=== PATIENT | female | born 1930 | race Asian ===

== ENCOUNTER 2016-09-29 07:48 | Day surgery (SDC) | payer OTHER ==
[~2016-09-29] VITALS: Ht 157.5 cm; Wt 49.0 kg
[2016-09-29] VITALS (12 sets, daily range): BP systolic 106–146; BP diastolic 56–78; PULSE 64–75; RESP 18–33; Ht 157.5 cm; Wt 49.0 kg
--- NOTE | 2016-09-29 07:35 | HPN ---
Date/Time of Note Date/Time of Note DATE: 09/29/16 TIME: 07:35 Interval H&P Admission Note Pt. seen H&P reviewed: No system changes BILL QUESADA MD Sep 29, 2016 07:35
[~2016-09-29 07:48] MED LIST: AMLO5TAB4 PO; HYD25 PO
[2016-09-29] MEDS ORDERED: NEPAFENAC 0.1% 3 ML OPH OPER SCH (08:30)
[2016-09-29] MEDS ORDERED: CYCLOPENTOLATE 2% 2 ML OPH OPER SCH (08:30)
[2016-09-29] MEDS ORDERED: PHENYLephrine 10% 5 ML OPH OPER SCH (08:30)
[2016-09-29] MEDS ORDERED: MOXIFLOXACIN 0.5% 3 ML OPH OPER SCH (08:30)
[2016-09-29] MEDS ORDERED: PROPOFOL 20 ML ONE (09:35)
[2016-09-29] MEDS ORDERED: FENTAnyl 50 MCG/ML VIAL ONE (09:35)
[2016-09-29] MEDS ORDERED: LIDOCAINE 1% (MPF) 10 ML INJ ONE (09:49)
[2016-09-29] MEDS ORDERED: BUPIVACAINE 0.75% (MPF) 10 ML INJ ONE (09:49)
[2016-09-29] MEDS ORDERED: EPINEPHrine 1 MG INJ ONE (09:49)
[2016-09-29] MEDS ORDERED: TIMOLOL 0.5% 5 ML OPH ONE (09:49)
[2016-09-29] MEDS ORDERED: TIMOLOL 0.5% 5 ML OPH LEFT EYE ONE (10:50)
[2016-09-29] MEDS ORDERED: OXYCODONE/ACETAMINOPHEN (5/325) TAB PO PRN (11:00)
[2016-09-29] MEDS ORDERED: ONDANSETRON 4 MG INJ IV PRN (11:00)
[2016-09-29] MEDS ORDERED: LIDOCAINE 2% (SDV) 5 ML INJ ONE (11:10)
--- NOTE | 2016-09-29 11:10 | OPR ---
Date/Time of Note Date/Time of Note DATE: 09/29/16 TIME: 11:06 Operative Report Free Text/Dictation no co-surgeons or assists Preoperative Diagnosis cataract left eye Postoperative Diagnosis same Operation/Procedure Performed cataract extraction with lens implant Surgeon: BILL QUESADA MD Anesthesia Type: MAC Estimated Blood Loss: none Transfusion Required: no Specimen: none Grafts/Implants: none Complications: no BILL QUESADA MD Sep 29, 2016 11:10
--- NOTE | 2016-09-30 04:28 | OPR ---
DATE OF OPERATION: 09/29/2016 SURGEON: Kaylee Dockery MD PURCHASING MANAGER/SALES: None. ANESTHESIOLOGIST: [____] PREOPERATIVE DIAGNOSIS: Senile nuclear sclerotic cataract, right eye. POSTOPERATIVE DIAGNOSIS: Senile nuclear sclerotic cataract, right eye. OPERATION: Kelman phacoemulsification with implantation of intraocular lens, right eye. PROCEDURE: Following standard preparation and draping of the patient, an aspirating lid speculum was placed for immobilization of the lids. A Superblade incision was made for access into the anterior chamber. Approximately 0.5 ml of 1% unpreserved Xylocaine was instilled into the anterior chamber, and after approximately 15 seconds, this was replaced with Viscoat. A clear corneal incision was then made using the 3.2 mm keratome, following which an anterior circular capsulorrhexis was made. The major portion of the lens cortex and nucleus was then dislocated from the capsular bag using hydrodissection. The KPE tip was introduced into the eye, and controlling movements of the lens with a two-handed technique, the major portion of the lens cortex and nucleus was removed, maintaining the lens in the plane of the iris. The remaining cortical material was removed via the irrigating-aspirating instrument. The capsular bag and the anterior chamber were re-formed using Viscoat. The proper power lens was then placed within the capsular bag. The viscoelastic was then removed from the eye and the eye re-formed with balanced salt solution. One 10-0 Vicryl suture was then used to ensure closure of the corneal incision. The eye was re-formed to normal pressure using balanced salt solution. The eye and cul-de-sacs were now simply flooded with 5% Betadine solution. One drop of Vigamox and one drop of Betagan solution were instilled into the eye. A light pressure dressing was applied, and the patient was returned to the recovery room in satisfactory condition. Dictated By: Kaylee Dockery MD /wale/blaine /Document#: [id number]
== END 2016-09-29 12:25 | disposition home or self-care (01) ==
LOC: SDS 07:48
PROVIDERS: ATTEND Ophthalmology
DX: H25.12 Age-related nuclear cataract, left eye (principal); I10 Essential (primary) hypertension
CPT/HCPCS: 66984; J0171; J3010; V2632; Z7512; Z7610

== ENCOUNTER 2018-05-19 16:51 | Inpatient (IN) | payer OTHER ==
[~2018-05-19] VITALS: Ht 157.5 cm; Wt 49.0 kg
[~2018-05-19 16:51] MED LIST changes: -HYD25 PO; +HYDR25TA6 PO
[2018-05-19 20:00] VITALS: PULSE 76
[2018-05-19 20:15] VITALS: BP 113/57; PULSE 70; RESP 16
[2018-05-19] MEDS ORDERED: ONDANSETRON 4 MG INJ IV PRN (20:30)
[2018-05-19] MEDS ORDERED: BISACODYL (EC) 5 MG TAB PO PRN (20:30)
[2018-05-19] MEDS ORDERED: DOCUSATE SODIUM 100 MG CAP PO PRN (20:30)
[2018-05-19] MEDS ORDERED: ACETAMINOPHEN 325 MG TAB PO PRN (20:30)
[2018-05-19] MEDS ORDERED: NACL 0.9% 3 ML SYG IV SCH (20:30)
[2018-05-19 20:32] VITALS: PULSE 76
[2018-05-19] MEDS ORDERED: SOD CHLORIDE 0.45% 1,000 ML IV SCH (22:30)
--- NOTE | 2018-05-19 22:39 | HP ---
Date/Time of Note Date/Time of Note DATE: 05/19/18 TIME: 22:39 Assessment/Plan VTE Prophylaxis SCD applied (from Ns): Yes Pharmacological prophylaxis: NA/contraindicated Pharm contraindication: low risk/ambulating Assessment/Plan Hospital Course This is a 88-year female being admitted to the telemetry floor for: #1 persistent cough: Possibly secondary to unresolved versus recurrent pneumonia. At the current time will treat patient with Zosyn 3.375 every [address] of the chest to further evaluate given the fact that she has had some persistent cough for approximately 2 months. Will need to contact [facility] for culture results. #2 abnormal weight loss: Patient has lost approximately 20 pounds over the last month. She also has had a poor appetite. Patient also has reported difficulty swallowing. Will obtain a CT of the chest and a CT of the abdomen pelvis for further evaluate. Will obtain a swallow evaluation, and consider GI consultation. Will check a stool occult blood. #3 normocytic anemia: We will check a stool occult blood, will check iron stores and ferritin. CT studies. Given her weight loss like to keep malignancy on the differential. #4 dehydration with contraction alkalosis: Secondary to poor appetite as well as effect from hydrochlorthiazide. Will hold hydrochlorothiazide at the current time. Will hydrate the patient with normal saline. Will monitor will check re peat BMP and monitor sodium and potassium levels. #5 electrolyte derangement: Likely secondary to poor p.o. intake and medication and hydrochlorothiazide effect. Will discontinue hydrochlorthiazide. Will check stat CMP to assess sodium and potassium levels and replete as indicated. #6 DVT GI prophylaxis: SCDs, no GI prophylaxis indicated Further treatment strategy will be implemented as per the clinical course. Result Diagram: 05/19/18204305/19/182043 Results 24hrs Laboratory Tests Test 05/19/18 20:44 White Blood Count 8.6 Red Blood Count 3.84 L Hemoglobin 10.3 L Hematocrit 32.7 L Mean Corpuscular Volume 85.2 Mean Corpuscular Hemoglobin 26.8 L Mean Corpuscular Hemoglobin Concent 31.5 L Red Cell Distribution Width 15.9 H Platelet Count 435 H Mean Platelet Volume 8.2 Immature Granulocytes % 0.700 H Neutrophils % 78.5 H Lymphocytes % 10.2 L Monocytes % 9.8 Eosinophils % 0.6 Basophils % 0.2 Nucleated Red Blood Cells % 0.0 Immature Granulocytes # 0.060 H Neutrophils # 6.7 Lymphocytes # 0.9 Monocytes # 0.8 Eosinophils # 0.1 Basophils # 0.0 Nucleated Red Blood Cells # 0.0 Sodium Level 132 L Potassium Level 4.3 Chloride Level 94 L Carbon Dioxide Level 34 H Anion Gap 4 L Blood Urea Nitrogen 3 L Creatinine 0.44 Est Glomerular Filtrat Rate mL/min Glucose Level 106 Calcium Level 8.8 Magnesium Level 1.8 Total Bilirubin 0.4 Direct Bilirubin 0.00 Indirect Bilirubin 0.4 Aspartate Amino Transf (AST/SGOT) 36 Alanine Aminotransferase (ALT/SGPT) 22 Alkaline Phosphatase 90 Total Protein 7.1 Albumin 3.2 L Globulin 3.90 H Albumin/Globulin Ratio 0.82 HPI/ROS Admit Date/Time Admit Date/Time May 19, 2018 at 19:24 Hx of Present Illness Chief complaint: Decreased appetite and cough times 2 months The following history was obtained from the transfer documentation as well as from the daughter . this is a 88-year-old female who presented to [facility] with complaints of cough and poor appetite. Patient subsequently transferred to [facility] secondary to insurance purposes. Patient is presented with her daughter. Daughter states that mother went to the [facility] to visit 2 months ago and over there was diagnosed with pneumonia and she was treated with azithromycin for a course of 7. The daughter just went and brought her mother back approximately 2 days ago from the [facility] and noticed that she had a significant amount of weight loss. She continues to have a nonproductive cough. She otherwise has been moving around and in activity barreto is near her baseline. She does report that while she is drinking fluids the mother has been having decreased solid food intake. She states that she cannot swallow it, but she denies any pain when swallowing food. She still takes her blood pressure medications without any problem. Daughter denies any exposure to tuberculosis no signs of fevers or hemoptysis. Pertinent laboratory findings from the transferring facility please see chart for full details: Vitals on presentation heart rate 88 BP 104 51 temperature 36.2C SPO2 94% on room air Urinalysis shows small leukoesterase Hemoglobin 11.4 hematocrit 35.2 white blood cells 10.4 platelets 550 Sodium 127/potassium 2.4/chloride 81/glucose 126/BUN 3/creatinine 0.58 Troponin less than 0.029 Chest x-ray showed chronic fibrotic changes, possible right-sided infiltrate. EKG showed normal sinus rhythm at approximately 92 bpm, ST segment depressions at 123 and aVF QRS interval prolonged. As per the ED physician interpretation. Allergies: NKDA Medications: Hydrochlorothiazide, amlodipine ROS Subjective hx not possible: other (Unable to obtain secondary to language barrier) PMH/Family/Social Past Medical History Hypertension Medications Current Medications IV Flush (NS 3 ml) 3 ml PER PROTOCOL IV ; Start 05/19/18 at 20:30 Ondansetron HCl (Zofran Inj) 4 mg Q6H PRN IV NAUSEA/VOMITING; Start 05/19/18 at 20:30 Acetaminophen (Tylenol Tab) 650 mg Q6H PRN PO .PAIN 1-3 OR TEMP; Start 05/19/18 at 20:30 Docusate Sodium (Colace) 100 mg Q12H PRN PO .CONSTIPATION; Start 05/19/18 at 20:30 Bisacodyl (Dulcolax) 5 mg DAILY PRN PO .CONSTIPATION; Start 05/19/18 at 20:30 Sodium Chloride 1,000 ml @ 80 mls/hr [id number] IV Last administered on 05/19/18at 22:27; Admin Dose 80 MLS/HR; Start 05/19/18 at 22:30; Stop 05/20/18 at 10:59 Coded Allergies: No Known Allergy (Unverified , 09/29/16) Past Surgical History Hysterectomy, cataract surgery Family History Significant Family History: no pertinent family hx Social History Alcohol Use: none Smoking Status: Never smoker Drug Use: none Exam/Review of Systems Vital Signs Vitals Vital Signs Date Temp Pulse Resp B/P (MAP) Pulse Ox O2 O2 Flow FiO2 Time Delivery Rate 05/19/18 76 20:32 05/19/18 97.3 16 113/57 91 20:15 (75) Exam Exam General: Patient is a frail-appearing female lying in bed currently no acute distress HEENT: Atraumatic, normocephalic. The pupils are equal, round and reactive. Extraocular motor are intact Neck: Supple with full range of motion. No rigidity or meningismus Chest: Nontender Lungs: Coarse breath sounds bilaterally, no cough during my examination Heart: Normal S1-S2, Regular rhythm and rate. No murmur, S3, or S4 Abdomen: Soft , nontender, nondistended , bowel sounds are present. No guarding no rebound tenderness , No masses or organomegaly. No costovertebral temporal angle mass Extremities: Normal to inspection, no edema no cyanosis Neurologic: Awake and alert, easily arousable. Cranial nerves II to XII intact. Gait not assessed. ALBERT BARRAGAN May 19, 2018 22:39
[2018-05-20] VITALS (12 sets, daily range): BP systolic 92–128; BP diastolic 50–65; PULSE 71–91; RESP 16–18
[2018-05-20] MEDS ORDERED: BARIUM SULF 2% 450 ML BTL (BERRY SMOOTHIE) PO ONE (04:00)
[2018-05-20] MEDS: PIPER-TAZO 3.375 GM IV (PMX) 100 ML IVPB SCH ×3 (05:22→21:19)
[2018-05-20] MEDS: AMLODIPINE 5 MG TAB PO SCH (08:45)
[2018-05-20] MEDS ORDERED: NACL 3% FOR INHALATION 15 ML NEBU NEB ONE (10:00)
--- NOTE | 2018-05-20 16:18 | PN ---
Date/Time of Note Date/Time of Note DATE: 05/20/18 TIME: 16:13 Assessment/Plan VTE Prophylaxis Risk score (from Ns)>0 risk: 3 SCD applied (from Ns): Yes Pharmacological prophylaxis: NA/contraindicated Pharm contraindication: low risk/ambulating Lines/Catheters IV [facility] (from [facility] Peripheral IV Urinary Cath still in place: No Assessment/Plan Assessment/Plan 88 yo [place] woman admitted with weight loss, cough, and lung infiltrates #Persistent cough #Weight loss #Infiltrates and ground glass opacities on CT - Due to recent visit to [facility], patient is at moderate risk of tuberculosis. - Airborne isolation - Ruleout with induced sputum TB PCR x2 and AFB smear x3. - Will continue zosyn for possible "unresolved pneumonia" - Alternatively, there are enlarged mediastinal lymph nodes. After TB ruleout she may be a candidate for bronchoscopy with EBUS versus mediastinoscopy, both of which could be done outpatient. # normocytic anemia: - Elevated ferritin consistent with anemia of chronic disease # dehydration with contraction alkalosis: - Secondary to poor appetite as well as effect from hydrochlorthiazide. Will hold hydrochlorothiazide at the current time. - Fluid hydration, resume diet. # DVT GI prophylaxis: SCDs, no GI prophylaxis indicated Result Diagram: 05/20/18 0504 05/20/18 0504 Subjective 24 Hr Interval Summary Free Text/Dictation No acute overnight events. Patient's son was at bedside, I updated him on the plan. To clarify; patient has had weight loss since being in the [facility] as well as productive cough; but denies fever or night sweats. Exam/Review of Systems Exam Vitals Vital Signs Date Temp Pulse Resp B/P (MAP) Pulse Ox O2 O2 Flow FiO2 Time Delivery Rate 05/20/18 90 20 96 21 16:08 05/20/18 98.2 117/59 15:24 (78) 05/19/18 Nasal 2.0 21:00 Cannula Intake and Output 05/19/18 05/19/18 05/20/18 1515:00 23:00 07:00 IntakeIntake Total 300 ml BalanceBalance 300 ml Exam General: Patient is a frail-appearing woman lying in bed currently no acute distress HEENT: Atraumatic, normocephalic. The pupils are equal, round and reactive. Extraocular motor are intact Neck: Supple with full range of motion. No rigidity or meningismus Chest: Nontender Lungs: Coarse breath sounds bilaterally, occasional wet cough. Heart: Normal S1-S2, Regular rhythm and rate. No murmur, S3, or S4 Abdomen: Soft , nontender, nondistended , bowel sounds are present. No guarding no rebound tenderness , Extremities: Normal to inspection, no edema no cyanosis Results Results 24hrs Laboratory Tests Test 05/19/18 20:44 05/20/18 05:04 05/20/18 08:45 White Blood Count 8.6 8.7 Red Blood Count 3.84 L 3.58 L Hemoglobin 10.3 L 9.7 L Hematocrit 32.7 L 31.0 L Mean Corpuscular Volume 85.2 86.6 Mean Corpuscular Hemoglobin 26.8 L 27.1 L Mean Corpuscular Hemoglobin Concent 31.5 L 31.3 L Red Cell Distribution Width 15.9 H 16.0 H Platelet Count 435 H 433 H Mean Platelet Volume 8.2 8.7 Immature Granulocytes % 0.700 H 0.600 H Neutrophils % 78.5 H 76.0 Lymphocytes % 10.2 L 12.8 L Monocytes % 9.8 9.5 Eosinophils % 0.6 0.8 Basophils % 0.2 0.3 Nucleated Red Blood Cells % 0.0 0.0 Immature Granulocytes # 0.060 H 0.050 H Neutrophils # 6.7 6.6 Lymphocytes # 0.9 1.1 Monocytes # 0.8 0.8 Eosinophils # 0.1 0.1 Basophils # 0.0 0.0 Nucleated Red Blood Cells # 0.0 0.0 Sodium Level 132 L 136 Potassium Level 4.3 4.7 Chloride Level 94 L 96 L Carbon Dioxide Level 34 H 32 H Anion Gap 4 L 8 Blood Urea Nitrogen 3 L 3 L Creatinine 0.44 0.43 L Est Glomerular Filtrat Rate mL/min Glucose Level 106 89 Calcium Level 8.8 8.7 Magnesium Level 1.8 1.7 Total Bilirubin 0.4 0.2 Direct Bilirubin 0.00 0.00 Indirect Bilirubin 0.4 0.2 Aspartate Amino Transf (AST/SGOT) 36 31 Alanine Aminotransferase (ALT/SGPT) 22 24 Alkaline Phosphatase 90 75 Total Protein 7.1 6.0 #L Albumin 3.2 L 2.8 L Globulin 3.90 H 3.20 Albumin/Globulin Ratio 0.82 0.87 Hemoglobin A1c 5.9 Iron Level 20 L Total Iron Binding Capacity 191 L Percent Iron Saturation 10 L Ferritin 531.0 H Creatine Kinase < 20 L Creatine Kinase Index Creatinine Kinase MB (Mass) 0.28 Troponin I < 0.012 Thyroid Stimulating Hormone (TSH) 1.630 Stool Occult Blood NEGATIVE Medications Medication Current Medications IV Flush (NS 3 ml) 3 ml PER PROTOCOL IV ; Start 05/19/18 at 20:30 Ondansetron HCl (Zofran Inj) 4 mg Q6H PRN IV NAUSEA/VOMITING; Start 05/19/18 at 20:30 Acetaminophen (Tylenol Tab) 650 mg Q6H PRN PO .PAIN 1-3 OR TEMP; Start 05/19/18 at 20:30 Docusate Sodium (Colace) 100 mg Q12H PRN PO .CONSTIPATION; Start 05/19/18 at 20:30 Bisacodyl (Dulcolax) 5 mg DAILY PRN PO .CONSTIPATION; Start 05/19/18 at 20:30 Amlodipine Besylate (Norvasc) 5 mg DAILY PO ; Start 05/20/18 at 09:00 Piperacillin Sod/ Tazobactam Sod 100 ml @ 200 mls/hr Q8 IVPB Last administered on 05/20/18at 14:58; Admin Dose 200 MLS/HR; Start 05/20/18 at 06:00 ANGEL SHANNON MD May 20, 2018 16:18
[2018-05-20] MEDS ORDERED: IOHEXOL 300MG/ML 150 ML BTL ONE (16:37)
[2018-05-20] MEDS ORDERED: SOD CHLORIDE 0.9% 100 ML ONE (16:37)
[2018-05-21] VITALS (11 sets, daily range): BP systolic 101–123; BP diastolic 54–72; PULSE 62–88; RESP 16–18
[2018-05-21] MEDS: PIPER-TAZO 3.375 GM IV (PMX) 100 ML IVPB SCH ×3 (06:16→21:03)
[2018-05-21] MEDS: AMLODIPINE 5 MG TAB PO SCH (08:45)
--- NOTE | 2018-05-21 13:27 | CONS ---
DATE OF ADMISSION: 05/19/2018 DATE OF CONSULTATION: 05/21/2018 REASON FOR CONSULTATION: Abnormal chest CT. Thank you, Dr. Shannon, for this consultation. HISTORY OF PRESENT ILLNESS: This is an 88-year-old lady who recently returned from the [facility] w here she had experienced a 20-pound weight loss without gaining weight since arrival. Has occasional cough and pulmonary infiltrates for which she was worked up at [facility] in 2017/2017. At that time was ruled out for TB. She states she has had no prior history of TB, no hemoptysis or hem atemesis. No nausea, no vomiting. PAST MEDICAL HISTORY: As above. SOCIAL HISTORY: She is a nonsmoker: NO ALLERGIES. No history of drug use. FAMILY HISTORY: Noncontributory. SYSTEMS REVIEW: A 12-point review of systems was negative other than that mentioned above. PHYSICAL EXAMINATION: GENERAL: Thin, elderly, [place] lady, appears comfortable at rest, no acute distress. VITAL SIGNS: Currently afebrile, pulse is 80, blood pressure 112/57, O2 saturation 96% on room air. NECK: Supple. No JVD or lymphadenopathy. CARDIAC: S1, S2, no added sounds or murmurs. CHEST: Diminished air entry bilaterally. ABDOMEN: Soft, nontender. No guarding or rebound. EXTREMITIES: No cyanosis, clubbing, edema. NEUROLOGIC: Grossly intact. No focal deficits. SKIN: She has evidence of iron deficiency. LABORATORIES: White count is 10.4, hemoglobin 11.7, platelets of 549. DIAGNOSTIC DATA: CT chest shows patchy reticular nodular infiltrates and some cystic lung changes an d a 4 x 2 [address] ascending aortic aneurysm. CT abdomen and pelvis shows no significant abnormalities. IMPRESSION AND PLAN: 1. Recent weight loss of unclear etiology. 2. Pulmonary infiltrates, which appear to be chronic in nature given her extensive workup at [facility] in the past and ruled out for TB. Differential does include reactivation of TB, and I a gree with checking QuantiFERON Gold. However, since she has been negative in the past it is unlikely that this is a new mycobacterial tuberculosis infection. I will agree with the current antibiotics, would consider de-escalation soon. Possible outpatient workup for iron deficiency anemia. Thank you again, Dr. Shannon for this consult. Dictated By: BERNARDA CARRERA/ESTHER Conf#: [id number] DID#: [id number] CC: ANGEL SHANNON MD;*End*
--- NOTE | 2018-05-21 17:04 | PN ---
Date/Time of Note Date/Time of Note DATE: 05/21/18 TIME: 17:02 Assessment/Plan VTE Prophylaxis Risk score (from Ns)>0 risk: 4 SCD applied (from Ns): Yes Pharmacological prophylaxis: NA/contraindicated Pharm contraindication: low risk/ambulating Lines/Catheters IV [facility]ter Type (from [facility]): Peripheral IV Urinary Cath still in place: No Assessment/Plan Assessment/Plan 88 yo [place] woman admitted with weight loss, cough, and lung infiltrates #Persistent cough #Weight loss #Infiltrates and ground glass opacities on CT - After discussion with patient's daughter and Dr. North, there is a much lower suspicion for TB. - Will stop airborne isolation and sputum collection - Patient now breathing comfortably on room air, good appetite. - Continue zosyn for possible pneumonia. # normocytic anemia: - Elevated ferritin consistent with anemia of chronic disease # dehydration with contraction alkalosis: - Secondary to poor appetite as well as effect from hydrochlorthiazide. Will hold hydrochlorothiazide at the current time. - Fluid hydration, resume diet. # DVT GI prophylaxis: SCDs, no GI prophylaxis indicated Dispo: PT. Anticipate discharge in 24-48 hours. Result Diagram: 05/21/18 0509 05/21/18 0509 Subjective 24 Hr Interval Summary Free Text/Dictation No acute overnight events. Patient doing very well, apparently has greatly improved appetite. Discussed with daughter at bedside today. Apparently the patient had been recently ruled out for tuberculosis. Exam/Review of Systems Exam Vitals Vital Signs Date Temp Pulse Resp B/P (MAP) Pulse Ox O2 O2 Flow FiO2 Time Delivery Rate 05/21/18 98.0 76 18 101/54 96 15:14 (70) 05/21/18 Nasal 2.0 08:00 Cannula 05/20/18 21 16:08 Intake and Output 05/20/18 05/20/18 05/21/18 1515:00 23:00 07:00 IntakeIntake Total 1000 ml 200 ml 100 ml BalanceBalance 1000 ml 200 ml 100 ml Exam General: Patient is a frail-appearing woman lying in bed currently no acute distress HEENT: Atraumatic, normocephalic. The pupils are equal, round and reactive. Extraocular motor are intact Neck: Supple with full range of motion. No rigidity or meningismus Chest: Nontender Lungs: Coarse breath sounds bilaterally, occasional wet cough. Heart: Normal S1-S2, Regular rhythm and rate. No murmur, S3, or S4 Abdomen: Soft , nontender, nondistended , bowel sounds are present. No guarding no rebound tenderness , Extremities: Normal to inspection, no edema no cyanosis Results Results 24hrs Laboratory Tests Test 05/21/18 05:09 White Blood Count 10.4 Red Blood Count 4.38 # Hemoglobin 11.7 #L Hematocrit 38.2 # Mean Corpuscular Volume 87.2 Mean Corpuscular Hemoglobin 26.7 L Mean Corpuscular Hemoglobin Concent 30.6 L Red Cell Distribution Width 15.9 H Platelet Count 549 #H Mean Platelet Volume 8.3 Immature Granulocytes % 0.700 H Neutrophils % 76.1 Lymphocytes % 13.0 L Monocytes % 8.1 Eosinophils % 1.7 Basophils % 0.4 Nucleated Red Blood Cells % 0.0 Immature Granulocytes # 0.070 H Neutrophils # 7.9 H Lymphocytes # 1.4 Monocytes # 0.9 Eosinophils # 0.2 Basophils # 0.0 Nucleated Red Blood Cells # 0.0 Sodium Level 137 Potassium Level 3.7 Chloride Level 99 Carbon Dioxide Level 29 Anion Gap 9 Blood Urea Nitrogen 3 L Creatinine 0.49 Est Glomerular Filtrat Rate mL/min Glucose Level 106 Calcium Level 9.4 Total Bilirubin 0.4 Direct Bilirubin 0.00 Indirect Bilirubin 0.4 Aspartate Amino Transf (AST/SGOT) 38 Alanine Aminotransferase (ALT/SGPT) 11 L Alkaline Phosphatase 121 # Total Protein 8.4 #H Albumin 3.8 # Globulin 4.60 H Albumin/Globulin Ratio 0.82 Medications Medication Current Medications IV Flush (NS 3 ml) 3 ml PER PROTOCOL IV ; Start 05/19/18 at 20:30 Ondansetron HCl (Zofran Inj) 4 mg Q6H PRN IV NAUSEA/VOMITING; Start 05/19/18 at 20:30 Acetaminophen (Tylenol Tab) 650 mg Q6H PRN PO .PAIN 1-3 OR TEMP; Start 05/19/18 at 20:30 Docusate Sodium (Colace) 100 mg Q12H PRN PO .CONSTIPATION; Start 05/19/18 at 20:30 Bisacodyl (Dulcolax) 5 mg DAILY PRN PO .CONSTIPATION Last administered on 05/20/18at 21:26; Admin Dose 5 MG; Start 05/19/18 at 20:30 Amlodipine Besylate (Norvasc) 5 mg DAILY PO Last administered on 05/21/18at 08:45; Admin Dose 5 MG; Start 05/20/18 at 09:00 Piperacillin Sod/ Tazobactam Sod 100 ml @ 200 mls/hr Q8 IVPB Last administered on 05/21/18at 14:32; Admin Dose 200 MLS/HR; Start 05/20/18 at 06:00 ANGEL SHANNON MD May 21, 2018 17:04
[2018-05-22] VITALS: BP 121/56; PULSE 78; PULSE 86; RESP 18
[2018-05-22 04:00] VITALS: BP 127/60; PULSE 83; PULSE 88; RESP 19
[2018-05-22] MEDS: PIPER-TAZO 3.375 GM IV (PMX) 100 ML IVPB SCH (06:26)
[2018-05-22 07:18] VITALS: BP 120/58; PULSE 75; RESP 18
[2018-05-22 08:01] VITALS: PULSE 87
[2018-05-22] MEDS: AMLODIPINE 5 MG TAB PO SCH (08:06)
[2018-05-22 11:02] VITALS: BP 110/55; PULSE 78; RESP 18
[2018-05-22] MEDS ORDERED: LEVO750T8 PO (11:02)
--- NOTE | 2018-05-22 11:04 | PDOCDIS ---
Discharge Instructions DIAGNOSIS Discharge Diagnosis Community-acquired pneumonia Likely underlying lung disease CONDITION [id number] Patient Condition: [id number] Good HOME CARE INSTRUCTIONS: [id number] Diet Instructions: Tpepi2s Regular ACTIVITY: [id number] Activity Restrictions: [id number] No Restrictions FOLLOW UP/APPOINTMENTS Follow-up Plan 1. Take all medications as prescribed. 2. You can follow up with Dr. North in his pulmonary medicine clinic in 2-4 weeks. Address: [address] [place] [address] 3. See your primary care doctor in 1-2 weeks. ANGEL SHANNON MD May 22, 2018 11:04
[2018-05-22 12:01] VITALS: PULSE 66
--- NOTE | 2018-05-22 15:37 | DS ---
Date/Time of Note Date/Time of Note DATE: 05/22/18 TIME: 15:34 Discharge Summary Admission/Discharge Info Admit Date/Time May 19, 2018 at 19:24 Discharge Date/Time May 22, 2018 at 13:15 Discharge Diagnosis Community-acquired pneumonia Likely underlying lung disease Patient Condition: Good Consults Dr. North, pulmonary medicine Procedures None Hx of Present Illness Chief complaint: Decreased appetite and cough times 2 months The following history was obtained from the transfer documentation as well as from the daughter . this is a 88-year-old female who presented to [facility] with complaints of cough and poor appetite. Patient subsequently transferred to [facility] secondary to insurance purposes. Patient is presented with her daughter. Daughter states that mother went to the [facility] to visit 2 months ago and over there was diagnosed with pneumonia and she was treated with azithromycin for a course of 7. The daughter just went and brought her mother back approximately 2 days ago from the [facility] and noticed that she had a significant amount of weight loss. She continues to have a nonproductive cough. She otherwise has been moving around and in activity barreto is near her baseline. She does report that while she is drinking fluids the mother has been having decreased solid food intake. She states that she cannot swallow it, but she denies any pain when swallowing food. She still takes her blood pressure medications without any problem. Daughter denies any exposure to tuberculosis no signs of fevers or hemoptysis. Pertinent laboratory findings from the transferring facility please see chart for full details: Vitals on presentation heart rate 88 BP 104 51 temperature 36.2C SPO2 94% on room air Urinalysis shows small leukoesterase Hemoglobin 11.4 hematocrit 35.2 white blood cells 10.4 platelets 550 Sodium 127/potassium 2.4/chloride 81/glucose 126/BUN 3/creatinine 0.58 Troponin less than 0.029 Chest x-ray showed chronic fibrotic changes, possible right-sided infiltrate. EKG showed normal sinus rhythm at approximately 92 bpm, ST segment depressions at 123 and aVF QRS interval prolonged. As per the ED physician interpretation. Allergies: NKDA Medications: Hydrochlorothiazide, amlodipine Hospital Course Based on initial history, there was concern about tuberculosis so she was placed on airborne isolation and sputum smear was ordered. However, on further discussion with the patient's daughter TB was placed much lower on the differential. She apparently had TB ruleout already in 2016, and needed a rigorous screening by medical customs in the [facility] prior to returning the the [place] this last time. Pulmonary was consulted and they agreed that TB was highly unlikely. So ruleout was cancelled and airborne precautions lifted. The patient had a very good appetite in the hospital and the family reported she appeared greatly improved from her baseline. Will plan to discharge on PO levofloxacin for community-acquired pneumonia. Home Meds Active Scripts Levofloxacin* (Levofloxacin*) 750 Mg Tablet, 750 MG PO DAILY, #5 TAB Prov:ANGEL SHANNON MD 05/22/18 Reported Medications Hydrochlorothiazide* (Hydrochlorothiazide*) 25 Mg Tab, 25 MG PO DAILY, TAB 11/29/14 Amlodipine Besylate* (Norvasc*) 5 Mg Tablet, 5 MG PO DAILY, TAB 11/29/14 Follow-up Plan 1. Take all medications as prescribed. 2. You can follow up with Dr. North in his pulmonary medicine clinic in 2-4 weeks. Address: [address] [place] [address] 3. See your primary care doctor in 1-2 weeks. Primary Care Provider Care Physician No Primary Time spent on discharge: > 30 minutes Pending Labs Laboratory Tests Test 05/22/18 05:45 White Blood Count 6.8 10^3/ul (4.8-10.8) Red Blood Count 3.75 10^6/ul (4.20-5.40) Hemoglobin 10.2 g/dl (12.0-16.0) Hematocrit 32.3 % (37.0-47.0) Mean Corpuscular Volume 86.1 fl (82.0-101.0) Mean Corpuscular Hemoglobin 27.2 pg (29.0-33.0) Mean Corpuscular Hemoglobin Concent 31.6 g/dl (32.0-37.0) Red Cell Distribution Width 16.2 % (11.5-14.5) Platelet Count 444 10^3/UL (140-415) Mean Platelet Volume 8.5 fl (7.4-10.4) Immature Granulocytes % 0.700 % (0.001-0.429) Neutrophils % 70.3 % (39.0-77.0) Lymphocytes % 16.5 % (15.0-51.0) Monocytes % 9.1 % (0.0-11.0) Eosinophils % 2.8 % (0.0-7.0) Basophils % 0.6 % (0.0-2.0) Nucleated Red Blood Cells % 0.0 /100WBC (0.0-0.0) Immature Granulocytes # 0.050 10^3/ul (0.0-0.031) Neutrophils # 4.8 10^3/ul (1.6-7.5) Lymphocytes # 1.1 10^3/ul (0.8-2.9) Monocytes # 0.6 10^3/ul (0.3-0.9) Eosinophils # 0.2 10^3/ul (0.0-0.5) Basophils # 0.0 10^3/ul (0.0-0.1) Nucleated Red Blood Cells # 0.0 10^3/ul (0.0-0.0) Sodium Level 138 mmol/L (135-144) Potassium Level 3.7 mmol/L (3.5-5.1) Chloride Level 104 mmol/L (97-110) Carbon Dioxide Level 29 mmol/L (21-31) Anion Gap 5 (5-13) Blood Urea Nitrogen 3 mg/dl (7-20) Creatinine 0.47 mg/dl (0.44-1.00) Est Glomerular Filtrat Rate mL/min mL/min (>60) Glucose Level 88 mg/dl (70-220) Calcium Level 8.7 mg/dl (8.4-10.2) Total Bilirubin 0.3 mg/dl (0.2-1.3) Direct Bilirubin 0.00 mg/dl (0.00-0.20) Indirect Bilirubin 0.3 mg/dl (0-1.1) Aspartate Amino Transf (AST/SGOT) 30 IU/L (15-46) Alanine Aminotransferase (ALT/SGPT) 16 IU/L (13-69) Alkaline Phosphatase 82 IU/L (42-121) Total Protein 6.9 g/dl (6.1-8.1) Albumin 3.1 g/dl (3.3-4.9) Globulin 3.80 g/dl (1.3-3.2) Albumin/Globulin Ratio 0.81 ANGEL SHANNON MD May 22, 2018 15:37
== END 2018-05-22 13:15 | disposition home or self-care (01) | DRG 194 ==
LOC: 6WM 19:24
PROVIDERS: ADMIT Internal Medicine; ATTEND Internal Medicine
DX: J18.9 Pneumonia, unspecified organism (principal); Z68.1 Body mass index [BMI] 19.9 or less, adult; E87.3 Alkalosis; E86.0 Dehydration; E87.8 Other disorders of electrolyte and fluid balance, not elsewhere classified; D64.9 Anemia, unspecified; R63.4 Abnormal weight loss; I10 Essential (primary) hypertension
CPT/HCPCS: 71250; 74177; 80053; 82270; 82306; 82550; 82553; 82728; 83036; 83540; 83735; 84443; 84484; 85025; 86480; 87081; 87116; 87556; 94640; 94664; J2543; Q9967